=== PATIENT | female | born 1965 | race Two or more races ===

== ENCOUNTER 2016-06-11 09:57 | Inpatient (IN) | payer MEDICAID ==
[~2016-06-11] VITALS: Ht 162.6 cm; Wt 68.0 kg
[2016-06-11 12:39] LABS: Urine Bilirubin Negative (Negative); Urine Blood Negative /uL (Negative); Urine Color Yellow (Yellow); Urine Glucose Normal (Normal); Urine Ketone Negative (Negative); Urine Mucus FEW (None Seen); Urine Nitrite Negative (Negative); Urine RBC 3 /hpf (0 - 4); Urine Squamous Epithelial Cell MOD /hpf (<5); Urine Urobilinogen Normal (Negative); Urine pH 6.5 (5.0-8.0)
[2016-06-11 13:23] LABS: Basophils # (auto) 0 uL; Basophils % (auto) 0.8 % (0.0-2.0); DEFINITIVE VIEW TRANSMISSION; Eosinophils # (auto) 0.1 uL; Eosinophils % (auto) 1.5 % (0.0-7.0); Hematocrit 25.7 % (36.0-46.0); Hemoglobin 7.4 g/dL (12.2-16.2); Lymphocytes # (auto) 1.5 uL; Lymphocytes % (auto) 27.5 % (10.0-50.0); Mean Corpuscular Hemoglobin 18.8 pg (28.0-32.0); Mean Corpuscular Hgb Conc. 28.7 g/dL (32.0-36.0); Mean Corpuscular Volume 65.4 fL (80.0-100.0); Mean Platelet Volume 8.8 fL (7.4-10.4); Monocytes # (auto) 0.6 uL; Monocytes % (auto) 9.8 % (0.0-12.0); Neutrophils # (auto) 3.4 uL; Neutrophils % (auto) 60.4 % (37.0-80.0); Platelet Count (auto) 359 10^3/uL (140-450); White Blood Cell 5.6 10^3/uL (4.4-10.8)
[2016-06-11 13:39] LABS: Potassium 3.5 mmol/L (3.5-5.1)
[2016-06-11 13:47] LABS: Albumin 3.4 g/dL (3.4-5.0); BUN/Creatinine Ratio 18.8; Calcium 8.3 mg/dL (8.5-10.1)
[2016-06-11 14:08] LABS: Red Cell Distribution Width 20.3 % (11.6-16.0)
[2016-06-11] MEDS ORDERED: SODIUM CHLORIDE 0.9% 500 ML IVB ONE (14:26)
[2016-06-11 14:46] LABS: Bilirubin, Total 0.3 mg/dL (0.2-1.0); Total Protein 7.4 g/dL (6.4-8.2)
[2016-06-11 15:19] LABS: INR 1.03 (0.9-1.15); Partial Thromboplastin Time 22.4 sec (22.64-33.71); Prothrombin Time 10.6 sec (9.37-12.3)
[2016-06-11 15:30] LABS: Anisocytosis Moderate; Hypochromia Marked; Microcytosis Marked; Platelet Estimate Adequate
[2016-06-11] MEDS ORDERED: HYDROcodone-ACET 5/325MG TAB PO PRN (22:00)
[2016-06-11] MEDS ORDERED: LACTULOSE 20Gm/30ML SOLN PO PRN (22:00)
[2016-06-11 23:00] VITALS: BP 115/58
[2016-06-11] MEDS: SODIUM CHLORIDE 0.9% 1,000 ML IV SCH (23:00)
[2016-06-11 23:15] VITALS: BP 111/59
[2016-06-12] VITALS (10 sets, daily range): BP systolic 89–109; BP diastolic 47–59
[2016-06-12] MEDS ORDERED: IBUP200C3 PO (06:15)
[2016-06-12] MEDS ORDERED: OMEP20CA5 OR (06:15)
[2016-06-12 06:26] LABS: Basophils # (auto) 0.1 uL; Basophils % (auto) 1.4 % (0.0-2.0); DEFINITIVE VIEW TRANSMISSION; Eosinophils # (auto) 0.1 uL; Eosinophils % (auto) 2.4 % (0.0-7.0); Hematocrit 30.3 % (36.0-46.0); Lymphocytes # (auto) 1.7 uL; Lymphocytes % (auto) 37.5 % (10.0-50.0); Mean Corpuscular Hemoglobin 21.2 pg (28.0-32.0); Mean Corpuscular Hgb Conc. 29.8 g/dL (32.0-36.0); Mean Corpuscular Volume 71.1 fL (80.0-100.0); Mean Platelet Volume 8.7 fL (7.4-10.4); Monocytes # (auto) 0.6 uL; Neutrophils % (auto) 44.7 % (37.0-80.0); Platelet Count (auto) 296 10^3/uL (140-450); SUSPECT VIEW TRANSMISSION; White Blood Cell 4.4 10^3/uL (4.4-10.8)
[2016-06-12 06:58] LABS: BUN/Creatinine Ratio 14.8; Calcium 7.9 mg/dL (8.5-10.1); Potassium 3.7 mmol/L (3.5-5.1)
[2016-06-12 07:01] LABS: Bilirubin, Total 0.7 mg/dL (0.2-1.0); Total Protein 6.5 g/dL (6.4-8.2)
[2016-06-12 07:20] LABS: Red Cell Distribution Width 26.7 % (11.6-16.0)
[2016-06-12] MEDS ORDERED: LUTE20TA PO (07:45)
[2016-06-12 10:37] LABS: Anisocytosis Slight; Hypochromia Slight; Platelet Estimate Adequate
[2016-06-12] MEDS ORDERED: PANTOPRAZOLE 40 MG TAB PO ONE (10:45)
[2016-06-12] MEDS ORDERED: GADOPENTETATE DIMEGLUMINE (10MMOL/20 ML) VIAL IV ONE (12:59)
[2016-06-12] MEDS: SODIUM CHLORIDE 0.9% 1,000 ML IV SCH ×2 (14:01→22:49)
[2016-06-13] VITALS (7 sets, daily range): BP systolic 97–105; BP diastolic 39–69
[2016-06-13 07:13] LABS: Basophils # (auto) 0.1 uL; Basophils % (auto) 1.5 % (0.0-2.0); DEFINITIVE VIEW TRANSMISSION; Eosinophils # (auto) 0.1 uL; Eosinophils % (auto) 2.8 % (0.0-7.0); Hematocrit 30.1 % (36.0-46.0); Hemoglobin 9.1 g/dL (12.2-16.2); Lymphocytes # (auto) 1.3 uL; Lymphocytes % (auto) 26.9 % (10.0-50.0); Mean Corpuscular Hemoglobin 21.3 pg (28.0-32.0); Mean Corpuscular Hgb Conc. 30.4 g/dL (32.0-36.0); Mean Corpuscular Volume 70.3 fL (80.0-100.0); Mean Platelet Volume 8.3 fL (7.4-10.4); Monocytes # (auto) 0.6 uL; Monocytes % (auto) 12.2 % (0.0-12.0); Neutrophils # (auto) 2.7 uL; Neutrophils % (auto) 56.6 % (37.0-80.0); Platelet Count (auto) 320 10^3/uL (140-450); SUSPECT VIEW TRANSMISSION; White Blood Cell 4.8 10^3/uL (4.4-10.8)
[2016-06-13 07:18] LABS: Red Cell Distribution Width 26.7 % (11.6-16.0)
[2016-06-13 07:19] LABS: Anisocytosis Moderate; Hypochromia Moderate; Microcytosis Moderate; Platelet Estimate Adequate
[2016-06-13 07:27] LABS: Calcium 7.9 mg/dL (8.5-10.1); Potassium 3.6 mmol/L (3.5-5.1)
[2016-06-13 07:36] LABS: BUN/Creatinine Ratio 13.8; Bilirubin, Total 0.5 mg/dL (0.2-1.0); Total Protein 6.5 g/dL (6.4-8.2)
[2016-06-13] MEDS: PANTOPRAZOLE 40 MG TAB PO SCH (10:41)
[2016-06-13] MEDS: SODIUM CHLORIDE 0.9% 1,000 ML IV SCH ×2 (11:19→23:49)
[2016-06-13] MEDS ORDERED: IOHEXOL 300 MG/ML 100ML BOTTLE IJ ONE (11:46)
[2016-06-14 04:47] VITALS: BP 105/46
[2016-06-14 08:00] VITALS: BP 98/69
[2016-06-14 08:50] VITALS: BP 98/69
[2016-06-14] MEDS: PANTOPRAZOLE 40 MG TAB PO SCH (09:35)
[2016-06-14 10:11] LABS: Basophils # (auto) 0 uL; Basophils % (auto) 0.7 % (0.0-2.0); DEFINITIVE VIEW TRANSMISSION; Eosinophils # (auto) 0.1 uL; Eosinophils % (auto) 2.9 % (0.0-7.0); Hematocrit 32.5 % (36.0-46.0); Hemoglobin 9.5 g/dL (12.2-16.2); Lymphocytes # (auto) 1.3 uL; Lymphocytes % (auto) 27.4 % (10.0-50.0); Mean Corpuscular Hemoglobin 20.9 pg (28.0-32.0); Mean Corpuscular Hgb Conc. 29.3 g/dL (32.0-36.0); Mean Corpuscular Volume 71.4 fL (80.0-100.0); Mean Platelet Volume 8.7 fL (7.4-10.4); Monocytes # (auto) 0.4 uL; Monocytes % (auto) 8.2 % (0.0-12.0); Neutrophils # (auto) 2.9 uL; Neutrophils % (auto) 60.8 % (37.0-80.0); Platelet Count (auto) 328 10^3/uL (140-450); SUSPECT VIEW TRANSMISSION; White Blood Cell 4.7 10^3/uL (4.4-10.8)
[2016-06-14 10:17] LABS: Albumin 3.2 g/dL (3.4-5.0); BUN/Creatinine Ratio 13.1; Calcium 8.2 mg/dL (8.5-10.1); Potassium 3.6 mmol/L (3.5-5.1)
[2016-06-14 10:20] LABS: Bilirubin, Total 0.4 mg/dL (0.2-1.0); Total Protein 6.9 g/dL (6.4-8.2)
[2016-06-14 10:31] LABS: Red Cell Distribution Width 26.4 % (11.6-16.0)
[2016-06-14 11:24] VITALS: BP 98/69
[2016-06-14 11:52] LABS: Anisocytosis Moderate; Hypochromia Moderate; Platelet Estimate Adequate
[2016-06-14 12:15] LABS: Microcytosis Moderate
== END 2016-06-14 13:05 | disposition home or self-care (01) | DRG 663 ==
LOC: ER 09:59 → TELE-CENTR 10:00
PROVIDERS: ADMIT Family Medicine; ATTEND Internal Medicine
PROC: 30233N1 Transfusion of Nonautologous Red Blood Cells into Peripheral Vein, Percutaneous Approach (ICD-10-PCS; principal; 2016-06-11)
PROC: 30233N1 Transfusion of Nonautologous Red Blood Cells into Peripheral Vein, Percutaneous Approach (ICD-10-PCS; 2016-06-12)
DX: D50.0 Iron deficiency anemia secondary to blood loss (chronic) (principal); R16.0 Hepatomegaly, not elsewhere classified; D25.1 Intramural leiomyoma of uterus; H40.9 Unspecified glaucoma; N92.0 Excessive and frequent menstruation with regular cycle; K80.20 Calculus of gallbladder without cholecystitis without obstruction; K29.70 Gastritis, unspecified, without bleeding; K76.9 Liver disease, unspecified; Z82.49 Family history of ischemic heart disease and other diseases of the circulatory system; Z83.3 Family history of diabetes mellitus
CPT/HCPCS: 36415; 36430; 71010; 73723; 74170; 74176; 76705; 80053; 81001; 83735; 84702; 85025; 85610; 85730; 86850; 86900; 86901; 86920; 94761; 96360; 96361

== ENCOUNTER 2024-06-14 18:49 | Emergency (ER) | payer MEDICAID ==
[~2024-06-14] VITALS: Ht 157.5 cm; Wt 67.2 kg
[~2024-06-14 18:49] MED LIST: IBUP200C3 PO; LUTE20CA PO; OMEP20CA74 OR
--- NOTE | 2024-06-14 19:23 | ED.PDOC ---
History of Present Illness HPI Comments 58 y/o F presents with c/o right-facial droop and right-sided facial numbness for 8x days. She comments on symptoms onset being sudden and unprovoked and having no prior history of in the past. She denies having any weakness, numbness, tingling, fever, chills, or other associated symptoms or modifiers at this time. 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 ) Family History Family History: No family hx of DM, No family hx of HTN Social History Smoker: Non-Smoker Alcohol: Rarely Drugs: Denies Drug Use Lives In: Home EENTM: reports: others (right-side facial droop) Neurological: reports: numbness (right-side numbness to mouth) Physical Exam General Appearance: No Apparent Distress, Normal HEENT: Eye Lid (R) (lag), Pharynx Normal, TMs Normal, Other (right-sided facial droop, otherwise normal ENT exam ) Neck: Full Range of Motion, Non-Tender, Normal, Normal Inspection Respiratory: Chest Non-Tender, Lungs Clear, No Accessory Muscle Use, No Respiratory Distress, Normal Breath Sounds Cardiovascular: No Edema, No JVD, No Murmur, No Gallop, Normal Peripheral Pulses, Regular Rate/Rhythm Breast Exam: Deferred Gastrointestinal: No Organomegaly, Non Tender, No Pulsatile Mass, Normal Bowel Sounds, Soft Genitalia: Deferred Pelvic: Deferred Rectal: Deferred Extremities: No calf tenderness, Normal capillary refill, Normal inspection, Normal range of motion, Non-tender, No pedal edema Musculoskeletal : Apperance: Normal Neurologic: Alert, open hearth melter II-XII nml as Tested, No Motor Deficits, Normal Affect, Normal Mood, No Sensory Deficits Cerebellar Function: Normal Reflexes: Normal Skin: Dry, Normal Color, Warm Lymphatic: No Adenopathy Was a procedure done? Was a procedure done?: No Differential Dx Considerations may include: delgado's palsy, CVA, TIA, viral syndrome X-Ray, Labs, Meds, VS Vital Signs Date Time Temp Pulse Resp B/P (MAP) Pulse Ox O2 Delivery O2 Flow Rate FiO2 06/14/24 19:07 69 06/14/24 19:03 98.0 79 17 122/58 (79) 98 Lab Test 06/14/24 18:57 Range/Units POC Glucose 124 H 70-106 mg/dl [place] [id number] Ph: [phone] DIAGNOSTIC IMAGING Diagnostic Imaging Report : [id number] Signed PATIENT: PRADEEP WALKER ACCT: [id number] UNIT: [id number] : 1965 LOC: ER ROOM / BED: / AGE / SEX: 58 / F ADM STATUS: REG ER SERVICE 09 ORDERING PHYSICIAN: GISSELLE LONG MD PROCEDURE(s): CXRP - CHEST PORTABLE REASON: cellulittis ORDER NUMBER(s): [id number], ACCESSION NUMBER(s): [id number] CHEST RADIOGRAPH Indication: cellulittis Technique: Single frontal view of the chest was obtained Comparison: None FINDINGS: Lines and Tubes: None Lungs: No focal consolidation. Pleura: No effusion. No pneumothorax. Cardiomediastinal contours: Unremarkable Bones: No acute osseous abnormality. IMPRESSION: No acute cardiopulmonary disease. ATED BY: KAITLYN PLATA DO DICTATED DATE/TIME: 06/14/241925 SIGNED BY: KAITLYN PLATA DO SIGNED DATE/TIME: 06/14/241925 CC: DIAGNOSTIC IMAGING Diagnostic Imaging Report : [id number] Signed PATIENT: PRADEEP WALKER ACCT: [id number] UNIT: [id number] : 1965 LOC: ER ROOM / BED: / AGE / SEX: 58 / F ADM STATUS: REG ER SERVICE 03 ORDERING PHYSICIAN: GISSELLE LONG MD PROCEDURE(s): HWOCT - HEAD WITHOUT CONTRAST REASON: delgado s palsy ORDER NUMBER(s): [id number], ACCESSION NUMBER(s): [id number] EXAM: CT HEAD WITHOUT CONTRAST HISTORY: delgado s palsy COMPARISON: None TECHNIQUE: Axial images were obtained and reformatted in coronal and sagittal planes. All CT scans at this medical facility are performed using dose modulation techniques as appropriate to a performed exam including the following: Automated exposure control was utilized; adjustment of the MA and/or KV according to patient size; and use of iterative reconstruction technique. CT Dose: CTDI volume is 52.9 mGy. Dose-length product is 936.79 mGy*cm FINDINGS: Supratentorial Region: No evidence for large acute territorial ischemia. No intracranial hemorrhage is noted. Posterior Fossa: No acute abnormality. Brainstem: Unremarkable. Sellar/Suprasellar Region: Unremarkable. Ventricles, Cisterns, Sulci: Age-appropriate. Orbits: Right phthesis bulbi noted. Paranasal Sinuses: Unremarkable. Mastoid Air Cells: Unremarkable. Vasculature: Unremarkable. Bones/Soft Tissues: No acute abnormality. Other: None. IMPRESSION: 1. No acute intracranial process. ATED BY: MIKAELA ATKINS MD DICTATED DATE/TIME: 06/14/241936 SIGNED BY: MIKAELA ATKINS MD SIGNED DATE/TIME: 06/14/241936 CC: The patient was started on prep per day. She is to follow up with the primary care physician for Neurology referral to fully palsy. Time of 1ST Reevaluation: 19:25 Reevaluation 1ST: Unchanged Patient Education/Counseling: Diagnosis, Treatment Family Education/Counseling: No Family Present Departure 1 Departure Time of Disposition: 20:16 Impression: Primary Impression: Delgado's palsy Disposition: 01 HOME / SELF CARE / HOMELESS Condition: Stable Additional Instructions: Reassessed patient, vital signs stable. Denies any new symptoms. Patient is able to tolerate PO and ambulate/be mobile at their baseline without concern. Risks and benefits of all medications given or prescribed, if any, discussed. All lab work, imaging and diagnostic studies were reviewed by me. The patient was counseled extensively on my clinical impression, diagnosis, expected course of the disease, and plan, including their follow-up care. Will discharge patient. Patient instructed to follow up with Primary Care Physician within 24-48 hours for Neurology referral. Strict return precautions given for further exacerbation of symptoms or for new symptoms. The patient was given the opportunity to ask questions and all questions were answered by myself and the nursing/tech staff. Patient is in agreement with the care plan. The patient verbally expressed understanding of the discharge instructions, including the reasons to return to the Emergency Department. e-Prescriptions Prednisone (Prednisone) 20 Mg Tab 20 MG PO DAILY, #30 MG Prov: GISSELLE LONG MD 06/14/24 Discharged With: Self Critical Care Note Critical Care Time?: No Stability Stability form required: No Heart Score Heart Score: Heart Score Response (Comments) Value History N/A 0 EKG N/A 0 Age N/A 0 Risk Factors N/A 0 Troponin N/A 0 Total 0 I personally scribed for GISSELLE LONG MD ([email or web address]) on 06/14/24 at 19:23. Electronically submitted by Michael Saldivar ([email or web address]). GISSELLE LONG MD Jun 14, 2024 19:23
--- NOTE | 2024-06-14 19:28 | DVH ---
CHEST RADIOGRAPH Indication: cellulittis Technique: Single frontal view of the chest was obtained Comparison: None FINDINGS: Lines and Tubes: None Lungs: No focal consolidation. Pleura: No effusion. No pneumothorax. Cardiomediastinal contours: Unremarkable Bones: No acute osseous abnormality. IMPRESSION: No acute cardiopulmonary disease.
[2024-06-14] MEDS ORDERED: predniSONE 20 MG TAB PO ONE (19:30)
--- NOTE | 2024-06-14 19:39 | DVH ---
EXAM: CT HEAD WITHOUT CONTRAST HISTORY: pardo s palsy COMPARISON: None TECHNIQUE: Axial images were obtained and reformatted in coronal and sagittal planes. All CT scans at this medical facility are performed using dose modulation techniques as appropriate t o a performed exam including the following: Automated exposure control was utilized; adjustment of th e MA and/or KV according to patient size; and use of iterative reconstruction technique. CT Dose: CTDI volume is 52.9 mGy. Dose-length product is 936.79 mGy*cm FINDINGS: Supratentorial Region: No evidence for large acute territorial ischemia. No intracranial hemorrhage is noted. Posterior Fossa: No acute abnormality. Brainstem: Unremarkable. Sellar/Suprasellar Region: Unremarkable. Ventricles, Cisterns, Sulci: Age-appropriate. Orbits: Right phthesis bulbi noted. Paranasal Sinuses: Unremarkable. Mastoid Air Cells: Unremarkable. Vasculature: Unremarkable. Bones/Soft Tissues: No acute abnormality. Other: None. IMPRESSION: 1. No acute intracranial process.
[2024-06-14] MEDS ORDERED: PRED20TA2 PO (20:18)
[2024-06-14 22:14] VITALS: BP 109/49; TEMP 97.9
[2024-06-14 22:18] VITALS: PULSE 67; RESP 16; O2SAT 97
--- NOTE | 2024-06-16 07:14 | ECG ---
[facility] Test Date: 2024-06-14 Test Time: 19:07:28 Pat Name: PRADEEP WALKER Department: ER Room: Gender: F On Air Director: ZO : 1965 Requested By: GISSELLE LONG Order Number: [id number] Reading MD: Joey Prater Measurements Intervals [place] Rate: 69 P: 38 WV: 167 QRS: 16 QRSD: 81 T: 44 QT: 405 QTc: 434 Interpretive Statements Sinus rhythm Electronically Signed On 06-16-2024 9:47:33 PST by Joey Prater Please click the below link to view image of tracing.
== END 2024-06-14 22:24 | disposition home or self-care (01) ==
LOC: ER 18:52
DX: G51.0 Bell's palsy (principal); Z90.49 Acquired absence of other specified parts of digestive tract; Z90.710 Acquired absence of both cervix and uterus; Z79.899 Other long term (current) drug therapy
CPT/HCPCS: 70450; 71045; 82962; 87040; 93005

== ENCOUNTER 2024-09-19 10:40 | Inpatient (IN) | payer MEDICAID ==
[~2024-09-19] VITALS: Ht 162.6 cm; Wt 73.9 kg
[~2024-09-19 10:40] MED LIST changes: +PRED20TA2 PO
--- NOTE | 2024-09-19 11:26 | ED.PDOC ---
General HPI Comments 58y/o F, with no prior medical history presents to the ED for CC of pelvic pain. Patient states, she has been experiencing pelvic pain that radiates to her flanks and lower back [id number]. Patient reports, additional associated symptoms of nausea, diarrhea, and chills onset, 2 weeks ago which have since resolved. Patient denies hematuria, fever, fatigue, or vomiting. No other symptoms or modifying factors present this time. Time Seen by MD: 11:10 Primary Care Provider: unknown Reviewed notes: Nurses Notes, Medications, Allergies Allergies: Coded Allergies: NO KNOWN ALLERGIES (Unverified , 06/11/16) Home Meds Active Scripts Prednisone (Prednisone) 20 Mg Tab, 20 MG PO DAILY, #30 MG Prov:GISSELLE LONG MD 06/14/24 Reported Medications Vegetable Enzyme (Lutein) 20 Mg Tab, 20 MG PO, TAB 06/12/16 Ibuprofen (Ibuprofen) 200 Mg Cap, 200 MG PO, MG 06/12/16 Omeprazole (PRILOSEC) 20 Mg Cap, 20 MG OR, CAP 06/12/16 Information Source: Patient Mode of Arrival: Ambulatory Severity: Moderate Inability to void: None Timing: Weeks Duration: Since onset Prehospital treatment: None Onset: Spontaneous Symptoms: None History of: None Location: Suprapubic, (R) Flank, (L)Flank Modifying factors: None associated signs and symptoms: Nausea, Flank Pain, Back Pain Past Medical History PAST MEDICAL HISTORY: Denies Surgical History: Cholecystectomy, , 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 Family History Family History: No family hx of DM, No family hx of HTN Social History Smoker: Non-Smoker Alcohol: Rarely Drugs: Denies Drug Use Lives In: Home Constitutional: reports: chills; denies: diaphoresis, fatigue, fever, malaise, sweats, weakness, others EENTM: denies: blurred vision, double vision, ear bleeding, ear discharge, ear drainage, ear pain, ear ringing, eye pain, eye redness, hearing loss, mouth pain, mouth swelling, nasal discharge, nose bleeding, nose congestion, nose pain, photophobia, tearing, throat pain, throat swelling, voice changes, others Respiratory: denies: cough, hemoptysis, orthopnea, SOB at rest, shortness of breath, SOB with excertion, stridor, wheezing, others Cardiovascular: denies: chest pain, dizzy spells, diaphoresis, Dyspnea on exertion, edema, irregular heart beat, left arm pain, lightheadedness, palpitations, PND, syncope, others Gastrointestinal: reports: diarrhea, nausea; denies: abdomen distended, abdominal pain, blood streaked bowels, constipated, dysphagia, difficulty swallowing, hematemesis, melena, poor appetite, poor fluid intake, rectal bleeding, rectal pain, vomiting, others Genitourinary: reports: flank pain; denies: abnormal vagina bleeding, burning, dyspareunia, dysuria, frequency, hematuria, incontinence, pain, , vagina discharge, urgency, others Neurological: denies: dizziness, fainting, headache, left sided numbness, left sided weakness, numbness, paresthesia, pre-existing deficit, right sided numbness, right sided weakness, seizure, speech problems, tingling, tremors, weakness, others Musculoskeletal: reports: back pain; denies: gout, joint pain, joint swelling, muscle pain, muscle stiffness, neck pain, others Integumetry: denies: bruises, change in color, change in hair/nails, dryness, laceration, lesions, lumps, rash, wounds, others Hematologic/Lymphatic: denies: anemia, blood clots, easy bleeding, easy bruising, swollen glands, others Endocrine: denies: excessive hunger, excessive sweating, excessive thirst, excessive urination, flushing, intolerance to cold, intolerance to heat, unexplained weight gain, unexplained weight loss, others Psychiatric: denies: anxiety, bipolar disorder, depression, hopeless, panic disorder, schizophrenia, sleepless, suicidal, others All Other Systems: Reviewed and Negative Physical Exam General Appearance: Moderate Distress HEENT: Normal ENT Inspection, Pharynx Normal, TMs Normal Neck: Full Range of Motion, Non-Tender, Normal, Normal Inspection Respiratory: Chest Non-Tender, Lungs Clear, No Accessory Muscle Use, No Respiratory Distress, Normal Breath Sounds Cardiovascular: No Edema, No JVD, No Murmur, No Gallop, Normal Peripheral Pulses, Regular Rate/Rhythm Breast Exam: Deferred Gastrointestinal: LLQ, No Organomegaly, No Pulsatile Mass, Normal Bowel Sounds, RLQ, Soft, Tenderness Genitalia: Deferred Pelvic: Deferred Rectal: Deferred Extremities: No calf tenderness, Normal capillary refill, Normal inspection, Normal range of motion, Non-tender, No pedal edema Musculoskeletal : Apperance: Normal Neurologic: Alert, rodeo rider II-XII nml as Tested, No Motor Deficits, Normal Affect, Normal Mood, No Sensory Deficits Cerebellar Function: Normal Reflexes: Normal Skin: Dry, Normal Color, Warm Lymphatic: No Adenopathy Was a procedure done? Was a procedure done?: No Differential Diagnosis Kidney stone (Female): Pyelonephritis, Urinary obstruction, Urolithiasis Kidney stone (Male): Pancreatitis Urinary Problem (Female): UTI X-Ray, Labs, Meds, VS Vital Signs Date Time Temp Pulse Resp B/P (MAP) Pulse Ox O2 Delivery O2 Flow Rate FiO2 09/19/24 10:45 99.0 85 18 116/68 (84) 94 99.0 Lab Test 09/19/24 11:34 09/19/24 10:57 Range/Units White Blood Count 9.3 4.4-10.8 10^3/uL Red Blood Count 4.44 4.0-5.20 10^6/uL Hemoglobin 13.4 12.2-16.2 g/dL Hematocrit 39.4 36.0-46.0 % Mean Corpuscular Volume 88.7 80.0-100.0 fL Mean Corpuscular Hemoglobin 30.1 28.0-32.0 pg Mean Corpuscular Hemoglobin Concent 33.9 32.0-36.0 g/dL Red Cell Distribution Width 12.2 11.8-14.3 % Platelet Count 301 140-450 10^3/uL Mean Platelet Volume 8.1 6.9-10.8 fL Neutrophils (%) (Auto) 80.6 H 37.0-80.0 % Lymphocytes (%) (Auto) 12.8 10.0-50.0 % Monocytes (%) (Auto) 5.9 0.0-12.0 % Eosinophils (%) (Auto) 0.4 0.0-7.0 % Basophils (%) (Auto) 0.3 0.0-2.0 % Neutrophils # (Auto) 7.5 1.6-8.6 10 ^3/uL Lymphocytes # (Auto) 1.2 0.4-5.4 10 ^3/uL Monocytes # (Auto) 0.6 0-1.3 10 ^3/uL Eosinophils # (Auto) 0 0-0.8 10 ^3/uL Basophils # (Auto) 0 0-0.2 10 ^3/uL Nucleated Red Blood Cells 0.1 % Sodium Level 138 136-145 mmol/L Potassium Level 3.7 3.5-5.1 mmol/L Chloride Level 101 98-107 mmol/L Carbon Dioxide Level 28 20-31 mmol/L Anion Gap 9 5-15 Blood Urea Nitrogen 9 9-23 mg/dL Creatinine 0.68 0.550-1.02 mg/dL Glomerular Filtration Rate Calc 102 >90 mL/min BUN/Creatinine Ratio 13.2 10.0-20.0 Serum Glucose 105 74-106 mg/dL Calcium Level 10.2 8.7-10.4 mg/dL Urine Color Yellow Yellow Urine Clarity Clear Clear Urine pH 6.5 5.0-9.0 Urine Specific [place] 1.021 1.001-1.035 Urine Protein Trace H Negative Urine Ketones 1+ H Negative Urine Blood Negative Negative /uL Urine Nitrite Negative Negative Urine Bilirubin Negative Negative Urine Urobilinogen Normal Negative mg/dL Urine Leukocyte Esterase 1+ Negative /uL Urine RBC 1 0 - 4 /hpf Urine Microscopic WBC 4 0-5 /HPF Urine Squamous Epithelial Cells Few <5 /hpf Urine Bacteria Few H None Seen /hpf Urine Mucus Few None Seen Urine Glucose Normal Normal mg/dL CT ABD PEL: IMPRESSION: 1. Acute sigmoid diverticulitis. Wall thickening and stranding. No loculated abscess. Clinical correlation and continued follow-up is recommended. Consider follow-up exam with intravenous contrast. IV Hep-Lock was established. There is no sign of any abscess on the CAT scan so the patient is being started on Flagyl 500 mg IV piggyback The urine test has a slight UTI The CBC and chemistry panel are within normal limits The patient was given morphine 4 mg IV push for the pain The patient was given Zofran for the nausea The patient being admitted at this time. Images Reviewed?: Images reviewed and evaluated by me Time of 1ST Reevaluation: 11:40 Reevaluation 1ST: Unchanged Time of 2ND Reevaluation: 12:44 Reevaluation 2ND: Unchanged Patient Education/Counseling: Diagnosis, Treatment, Prognosis Family Education/Counseling: No Family Present Departure 1 Departure Time of Disposition: 12:44 Impression: Primary Impression: Intractable abdominal pain Additional Impression: Acute diverticulitis Disposition: ADMITTED INPATIENT Admit to: Med Surg Condition: Fair Critical Care Note Critical Care Time?: No Stability Stability form required: Yes Unstable for transfer: ED Physician Assesment (Clinical assesment) Heart Score Heart Score: Heart Score Response (Comments) Value History N/A 0 EKG N/A 0 Age N/A 0 Risk Factors N/A 0 Troponin N/A 0 Total 0 I personally scribed for MARGARITA ROGERS MD ([email or web address]) on 09/19/24 at 11:26. Electronically submitted by Nany Manzo ([employer]). I personally scribed for MARGARITA ROGERS MD ([email or web address]) on 09/19/24 at 11:34. Electronically submitted by Nany Manzo ([employer]). I personally scribed for MARGARITA ROGERS MD ([email or web address]) on 09/19/24 at 12:28. Electronically submitted by Nany Manzo ([employer]). MARGARITA ROGERS MD September 19, 2024 11:26
[2024-09-19 11:39] LABS: Urine Bacteria FEW /hpf (None Seen); Urine Blood Negative /uL (Negative); Urine Clarity Clear (Clear); Urine Color Yellow (Yellow); Urine Mucus FEW (None Seen); Urine Protein, UAD TRACE (Negative); Urine Specific Gravity 1.021 (1.001-1.035); Urine Squamous Epithelial Cell FEW /hpf (<5); Urine Urobilinogen Normal (Negative); Urine WBC 4 /HPF (0-5); Urine pH 6.5 (5.0-9.0)
[2024-09-19 11:59] LABS: Basophils # (auto) 0 10 ^3/uL (0-0.2); Basophils % (auto) 0.3 % (0.0-2.0); Eosinophils # (auto) 0 10 ^3/uL (0-0.8); Eosinophils % (auto) 0.4 % (0.0-7.0); Hematocrit 39.4 % (36.0-46.0); Hemoglobin 13.4 g/dL (12.2-16.2); Lymphocytes # (auto) 1.2 10 ^3/uL (0.4-5.4); Lymphocytes % (auto) 12.8 % (10.0-50.0); Mean Corpuscular Hemoglobin 30.1 pg (28.0-32.0); Mean Corpuscular Hgb Conc. 33.9 g/dL (32.0-36.0); Mean Corpuscular Volume 88.7 fL (80.0-100.0); Monocytes # (auto) 0.6 10 ^3/uL (0-1.3); Monocytes % (auto) 5.9 % (0.0-12.0); Neutrophils # (auto) 7.5 10 ^3/uL (1.6-8.6); Neutrophils % (auto) 80.6 % (37.0-80.0); Nucleated Red Blood Cells % 0.1 %; Platelet Count (auto) 301 10^3/uL (140-450); Red Blood Cells 4.44 10^6/uL (4.0-5.20); Red Cell Distribution Width 12.2 % (11.8-14.3); White Blood Cell 9.3 10^3/uL (4.4-10.8)
[2024-09-19 12:08] LABS: Chloride 101 mmol/L (98-107); Potassium 3.7 mmol/L (3.5-5.1); Sodium 138 mmol/L (136-145)
[2024-09-19 12:09] LABS: Anion Gap 9 (5-15); Calcium 10.2 mg/dL (8.7-10.4); Carbon Dioxide 28 mmol/L (20-31)
[2024-09-19 12:14] LABS: BUN/Creatinine Ratio 13.2 (10.0-20.0); Blood Urea Nitrogen 9 mg/dL (9-23); Glucose 105 mg/dL (74-106)
--- NOTE | 2024-09-19 12:18 | DVH ---
Exam: CT CT AB PEL WO CON-NO ORAL OR IV History: pain Comparison Study: None Technique: Multidetector spiral CT of the abdomen and pelvis was performed from lung bases to pubic symphysis. Imaging was performed without IV contrast. Axial, coronal and sagittal multiplanar reform ats were obtained from the axial data set by the technologist. Radiation dose : Abdomen/Pelvis: CTDIvol 6.42 mGy, DLP 346.23 mGy*cm. Findings: Evaluation of solid organs is limited due to lack of intravenous contrast use. Lung Bases: No acute or significant lung base finding. Normal heart size. No pleural or pericardial effusion. Liver: Subcentimeter right hepatic cyst. Gallbladder and biliary Tree: Gallbladder is surgically absent. Spleen: Unremarkable Pancreas: The pancreas is grossly normal in appearance. Adrenal Glands: Unremarkable Kidneys: Kidneys are grossly normal without calculi or hydronephrosis. Bladder: Grossly unremarkable for degree of distention. Bowel: The stomach is grossly normal in appearance. Small bowel and colon are normal in caliber and d istribution. Normal appendix is visualized in the right lower quadrant without findings of appendicit is. Sigmoid diverticulosis with wall thickening and adjacent stranding. No definite loculated abscess . Ascites: Absent Lymphadenopathy: No mesenteric, retroperitoneal or periportal lymphadenopathy. Abdominal wall and Mesentery: Unremarkable. Vasculature: The visualized abdominal aorta is normal in size and caliber. Evaluation of abdominal a nd pelvic vessels is limited due to lack of intravenous contrast. Pelvic Organs: The uterus is surgically absent. Musculoskeletal: No aggressive focal bony lesions, acute fractures or dislocation. IMPRESSION: 1. Acute sigmoid diverticulitis. Wall thickening and stranding. No loculated abscess. Clinical corre lation and continued follow-up is recommended. Consider follow-up exam with intravenous contrast. Radiation optimization: All CT scans at this facility use at least one of these dose optimization lakshmi hniques: Automated exposure control mA and/or kV adjustment per patient size (includes targeted exams where dose is matched to clinical indication) or iterative reconstruction. HS:Y
[2024-09-19 13:45] VITALS: PULSE 88; RESP 18; O2SAT 96
[2024-09-19] MEDS: MORPHINE SULFATE 4 MG/ML SYR/VIAL IV ONE (13:50)
[2024-09-19] MEDS: metroNIDAZOLE 500MG/100ML 100 ML IV ONE (13:50)
[2024-09-19] MEDS: ONDANSETRON HCL 4 MG/2 ML VIAL IV ONE (13:50)
[2024-09-19] MEDS ORDERED: NITROGLYCERIN 0.4 MG SL TAB SL PRN (19:15)
[2024-09-19] MEDS ORDERED: MORPHINE SULFATE INJ 2 MG/ml SYRG IV PRN ×2 (19:15)
[2024-09-19] MEDS ORDERED: ONDANSETRON HCL 4 MG/2 ML VIAL IV PRN (19:15)
[2024-09-19] MEDS: cefTRIAXone 1GM/50ML D5W 50 ML IV ONE (19:42)
--- NOTE | 2024-09-19 20:44 | DVHHP2 ---
History of Present Illness Reason for Visit: Abdominal pain History of Present Illness 58-year-old female presents for evaluation of abdominal pain. Patient reports abdominal pain has been ongoing intermittently for the past 1-1/2 weeks. She also reports constipation for the past four days. No fever or chills. Reports intermittent nausea. No other acute complaints reported. Past Medical History Denies Past Surgical History , hysterectomy, cholecystectomy Family History Noncontributory Smoke: No ALCOHOL: none Drugs: None Lives: with Family Review of Systems Review of Systems Review of systems are currently negative otherwise addressed in HPI. Allergies: Coded Allergies: NO KNOWN ALLERGIES (Unverified , 06/11/16) Medications Current Medications Medications Dose Ordered Sig/Nico Route Start Time Stop Time Status Last Admin Dose Admin Ceftriaxone Sodium 50 ml @ 100 mls/hr DAILY@09 IV 09/20/24 09:00 Metronidazole 100 ml @ 100 mls/hr Q8HR IV 09/19/24 22:00 Acetaminophen/ Hydrocodone Bitart 1 tab Q4HP PRN PO 09/19/24 19:15 Ondansetron HCl 4 mg Q4HP PRN IV 09/19/24 19:15 Acetaminophen 650 mg Q6HP PRN PO 09/19/24 19:15 Morphine Sulfate 2 mg Q6HPRN PRN IV 09/19/24 19:15 Nitroglycerin 0.4 mg Q5MINP PRN SL 09/19/24 19:15 Morphine Sulfate 2 mg Q30M PRN IV 09/19/24 19:15 Exam Vital Signs Vital Signs Date Time Temp Pulse Resp B/P (MAP) Pulse Ox O2 Delivery O2 Flow Rate FiO2 09/19/24 17:30 98.3 82 18 104/73 (83) 94 98.3 09/19/24 13:45 Room Air* 0 21 Exam Gen: 58-year-old female in mild distress Skin: Warm, dry, normal color and texture, no rash. HEENT: Normocephalic atraumatic, mucous membranes moist and pink. Neck: Cervical and supraclavicular nodes normal without enlargement, trachea is midline, thyroid gland is normal without masses. Pulmonary: Clear to auscultation and percussion bilaterally. Cardiac: Regular rate and rhythm. No murmur Abdomen: Soft, abdominal tenderness, nondistended, bowel sounds present all 4 quadrants, no guarding, no rigidity, no organomegaly. Extremities: No cyanosis, clubbing, no edema Neuro: Cranial nerves II through XII grossly intact, normal affect and speech, no focal motor deficits. Labs/Xrays ORDERING PHYSICIAN: MARGARITA ROGERS MD PROCEDURE(s): ABPL - CT AB PEL WO CON-NO ORAL OR IV REASON: pain ORDER NUMBER(s): [id number], ACCESSION NUMBER(s): [id number] Exam: CT CT AB PEL WO CON-NO ORAL OR IV History: pain Comparison Study: None Technique: Multidetector spiral CT of the abdomen and pelvis was performed from lung bases to pubic symphysis. Imaging was performed without IV contrast. Axial, coronal and sagittal multiplanar reformats were obtained from the axial data set by the technologist. Radiation dose : Abdomen/Pelvis: CTDIvol 6.42 mGy, DLP 346.23 mGy*cm. Findings: Evaluation of solid organs is limited due to lack of intravenous contrast use. Lung Bases: No acute or significant lung base finding. Normal heart size. No pleural or pericardial effusion. Liver: Subcentimeter right hepatic cyst. Gallbladder and biliary Tree: Gallbladder is surgically absent. Spleen: Unremarkable Pancreas: The pancreas is grossly normal in appearance. Adrenal Glands: Unremarkable Kidneys: Kidneys are grossly normal without calculi or hydronephrosis. Bladder: Grossly unremarkable for degree of distention. Bowel: The stomach is grossly normal in appearance. Small bowel and colon are normal in caliber and distribution. Normal appendix is visualized in the right lower quadrant without findings of appendicitis. Sigmoid diverticulosis with wall thickening and adjacent stranding. No definite loculated abscess. Ascites: Absent Lymphadenopathy: No mesenteric, retroperitoneal or periportal lymphadenopathy. Abdominal wall and Mesentery: Unremarkable. Vasculature: The visualized abdominal aorta is normal in size and caliber. Evaluation of abdominal and pelvic vessels is limited due to lack of intravenous contrast. Pelvic Organs: The uterus is surgically absent. Musculoskeletal: No aggressive focal bony lesions, acute fractures or dislocation. IMPRESSION: 1. Acute sigmoid diverticulitis. Wall thickening and stranding. No loculated abscess. Clinical correlation and continued follow-up is recommended. Consider follow-up exam with intravenous contrast. Radiation optimization: All CT scans at this facility use at least one of these dose optimization techniques: Automated exposure control mA and/or kV adjustment per patient size (includes targeted exams where dose is matched to clinical indication) or iterative reconstruction. HS:Y Labs Test 09/19/24 11:34 09/19/24 10:57 Range/Units White Blood Count 9.3 4.4-10.8 10^3/uL Red Blood Count 4.44 4.0-5.20 10^6/uL Hemoglobin 13.4 12.2-16.2 g/dL Hematocrit 39.4 36.0-46.0 % Mean Corpuscular Volume 88.7 80.0-100.0 fL Mean Corpuscular Hemoglobin 30.1 28.0-32.0 pg Mean Corpuscular Hemoglobin Concent 33.9 32.0-36.0 g/dL Red Cell Distribution Width 12.2 11.8-14.3 % Platelet Count 301 140-450 10^3/uL Mean Platelet Volume 8.1 6.9-10.8 fL Neutrophils (%) (Auto) 80.6 H 37.0-80.0 % Lymphocytes (%) (Auto) 12.8 10.0-50.0 % Monocytes (%) (Auto) 5.9 0.0-12.0 % Eosinophils (%) (Auto) 0.4 0.0-7.0 % Basophils (%) (Auto) 0.3 0.0-2.0 % Neutrophils # (Auto) 7.5 1.6-8.6 10 ^3/uL Lymphocytes # (Auto) 1.2 0.4-5.4 10 ^3/uL Monocytes # (Auto) 0.6 0-1.3 10 ^3/uL Eosinophils # (Auto) 0 0-0.8 10 ^3/uL Basophils # (Auto) 0 0-0.2 10 ^3/uL Nucleated Red Blood Cells 0.1 % Sodium Level 138 136-145 mmol/L Potassium Level 3.7 3.5-5.1 mmol/L Chloride Level 101 98-107 mmol/L Carbon Dioxide Level 28 20-31 mmol/L Anion Gap 9 5-15 Blood Urea Nitrogen 9 9-23 mg/dL Creatinine 0.68 0.550-1.02 mg/dL Glomerular Filtration Rate Calc 102 >90 mL/min BUN/Creatinine Ratio 13.2 10.0-20.0 Serum Glucose 105 74-106 mg/dL Calcium Level 10.2 8.7-10.4 mg/dL Urine Color Yellow Yellow Urine Clarity Clear Clear Urine pH 6.5 5.0-9.0 Urine Specific [place] 1.021 1.001-1.035 Urine Protein Trace H Negative Urine Ketones 1+ H Negative Urine Blood Negative Negative /uL Urine Nitrite Negative Negative Urine Bilirubin Negative Negative Urine Urobilinogen Normal Negative mg/dL Urine Leukocyte Esterase 1+ Negative /uL Urine RBC 1 0 - 4 /hpf Urine Microscopic WBC 4 0-5 /HPF Urine Squamous Epithelial Cells Few <5 /hpf Urine Bacteria Few H None Seen /hpf Urine Mucus Few None Seen Urine Glucose Normal Normal mg/dL Assessment/Plan Assessment/Plan Assessment Acute abdominal pain Acute diverticulitis Leukocytosis Plan Admit the patient to [facility] to the hospitalist GI consultation Clear liquid diet Rocephin/ Flagyl Pain management Continue treatment per orders. Plan discussed with: Patient My Orders Orders - DERIK BAGLEY AGACNP Procedure Category Date Status Time Ceftriaxone 1gm/50ml PHA 09/20/24 In Process D5w (Rocephin) 09:00 Metronidazole PHA 09/19/24 In Process 500mg/100ml (Flagyl 22:00 Basic Metabolic Panel LAB 09/20/24 Verified 04:00 * Gi [facility] Entry Level Accountant CONS 09/19/24 Transmitted 19:06 Admit ADMIT 09/19/24 Transmitted 19:06 Hydrocodone-Acet PHA 09/19/24 In Process 5/325mg Tab (Gardiner 19:15 Ondansetron Hcl PHA 09/19/24 In Process (Zofran) 19:15 Complete Blood Count LAB 09/20/24 Verified 04:00 Condition: Stable AMPARO 09/19/24 In Process 19:06 Acetaminophen Tablet PHA 09/19/24 In Process (Tylenol Tablet) 19:15 Clear Liq Diet DIET 09/20/24 Transmitted Breakfast Bedrest With Bathroom AMPARO 09/19/24 In Process Privileg 19:06 Morphine Sulfate PHA 09/19/24 In Process Injection 19:15 Nitroglycerin PHA 09/19/24 In Process Sublingual (Ntrostat 19:15 Morphine Sulfate PHA 09/19/24 In Process Injection 19:15 Stat Ekg For Chest AMPARO 09/19/24 In Process Pain 19:06 Notify Md Of Changes AMPARO 09/19/24 In Process From Base 19:06 Coronary Clinical Specialist For AMPARO 09/19/24 In Process 24 Hours 19:06 Emergency Dysrhythmia AMPARO 09/19/24 In Process Protocol 19:06 Rhythm Strips Once AMPARO 09/19/24 In Process Every Shift 19:06 Oxygen By Nasal RT 09/19/24 Transmitted Cannula 19:06 Date of Service: September 19, 2024 Billing Provider: DERIK BAGLEY Common Visit Codes: [id number] INP/OBS CARE (MOD) DERIK BAGLEY September 19, 2024 20:44
[2024-09-19] MEDS: metroNIDAZOLE 500MG/100ML 100 ML IV SCH (23:47)
[2024-09-20] VITALS (8 sets, daily range): BP systolic 97–113; BP diastolic 51–64; PULSE 0–83; RESP 12–18; TEMP 97.8–99.4; O2SAT 92–100
[2024-09-20] MEDS: HYDROcodone-ACET 5/325MG TAB PO PRN (00:26)
[2024-09-20 04:56] LABS: Basophils # (auto) 0 10 ^3/uL (0-0.2); Basophils % (auto) 0.5 % (0.0-2.0); Eosinophils # (auto) 0.1 10 ^3/uL (0-0.8); Eosinophils % (auto) 1.6 % (0.0-7.0); Hematocrit 34.4 % (36.0-46.0); Hemoglobin 11.7 g/dL (12.2-16.2); Lymphocytes # (auto) 1.4 10 ^3/uL (0.4-5.4); Lymphocytes % (auto) 21.7 % (10.0-50.0); Mean Corpuscular Hgb Conc. 34.1 g/dL (32.0-36.0); Mean Corpuscular Volume 87.9 fL (80.0-100.0); Monocytes # (auto) 0.6 10 ^3/uL (0-1.3); Monocytes % (auto) 8.5 % (0.0-12.0); Neutrophils # (auto) 4.4 10 ^3/uL (1.6-8.6); Neutrophils % (auto) 67.7 % (37.0-80.0); Platelet Count (auto) 266 10^3/uL (140-450); Red Blood Cells 3.91 10^6/uL (4.0-5.20); Red Cell Distribution Width 12.1 % (11.8-14.3); White Blood Cell 6.5 10^3/uL (4.4-10.8)
[2024-09-20 05:32] LABS: Anion Gap 10 (5-15); Carbon Dioxide 27 mmol/L (20-31); Chloride 102 mmol/L (98-107); Potassium 3.7 mmol/L (3.5-5.1); Sodium 139 mmol/L (136-145)
[2024-09-20 05:34] LABS: Calcium 9.2 mg/dL (8.7-10.4)
[2024-09-20 05:38] LABS: BUN/Creatinine Ratio 16.7 (10.0-20.0); Blood Urea Nitrogen 10 mg/dL (9-23); Glucose 88 mg/dL (74-106)
[2024-09-20] MEDS: cefTRIAXone 1GM/50ML D5W 50 ML IV SCH (11:22)
--- NOTE | 2024-09-20 16:00 | DVHPN2 ---
Subjective Admitted for Acute Diverticulitis Changes from previous H/P or p: No Changes Objective Vitals Vital Signs Date Time Temp Pulse Resp B/P (MAP) Pulse Ox O2 Delivery O2 Flow Rate FiO2 09/20/24 13:26 98.2 79 16 113/59 (77) 95 98.2 09/20/24 13:26 Room Air* 0 21 Intake/Output Intake and Output 09/20/24 07:00 Intake Total 100 ml Balance 100 ml Intake IV Total 100 ml General Appearance: Alert, Oriented X3, Cooperative, No acute distress Lungs: Clear to auscultation Cardiovascular: Regular rate, Normal S1, Normal S2 Abdomen: Soft, Other (Tenderness) Psych/Mental Status: Mental status NL Medications Current Medications Medications Dose Ordered Sig/Nico Route Start Time Stop Time Status Last Admin Dose Admin Ceftriaxone Sodium 50 ml @ 100 mls/hr DAILY@09 IV 09/20/24 09:00 09/20/24 11:22 100 MLS/HR Metronidazole 100 ml @ 100 mls/hr Q8HR IV 09/19/24 22:00 09/20/24 15:05 100 MLS/HR Acetaminophen/ Hydrocodone Bitart 1 tab Q4HP PRN PO 09/19/24 19:15 09/20/24 00:26 1 TAB Ondansetron HCl 4 mg Q4HP PRN IV 09/19/24 19:15 Acetaminophen 650 mg Q6HP PRN PO 09/19/24 19:15 Morphine Sulfate 2 mg Q6HPRN PRN IV 09/19/24 19:15 Nitroglycerin 0.4 mg Q5MINP PRN SL 09/19/24 19:15 Morphine Sulfate 2 mg Q30M PRN IV 09/19/24 19:15 Laboratory Results Laboratory Tests 09/20/24 04:34 Chemistry Test 09/20/24 04:34 Calcium Level 9.2 mg/dL (8.7-10.4) Urinalysis Test 09/19/24 10:57 Urine Color Yellow (Yellow) Urine Clarity Clear (Clear) Urine pH 6.5 (5.0-9.0) Urine Specific [place] 1.021 (1.001-1.035) Urine Protein Trace (Negative) H Urine Ketones 1+ (Negative) H Urine Blood Negative /uL (Negative) Urine Nitrite Negative (Negative) Urine Bilirubin Negative (Negative) Urine Urobilinogen Normal mg/dL (Negative) Urine Leukocyte Esterase 1+ /uL (Negative) Urine RBC 1 /hpf (0 - 4) Urine Microscopic WBC 4 /HPF (0-5) Urine Squamous Epithelial Cells Few /hpf (<5) Urine Bacteria Few /hpf (None Seen) H Urine Mucus Few (None Seen) Urine Glucose Normal mg/dL (Normal) Assessment/Plan Assessment/Plan Acute abdominal pain due to Acute diverticulitis - Cont Abx Plan discussed with: Other Date of Service: September 20, 2024 Billing Provider: FREDIS OCHOA MD Common Visit Codes: [id number] INP/OBS CARE(MOD) FREDIS OCHOA MD September 20, 2024 16:00
--- NOTE | 2024-09-20 20:54 | DVHINCON2 ---
Date of service: September 20, 2024 Referring Physician Nicholas Carmen Reason for Consultation Acute diverticulitis History of Present Illness 58-year-old female presents for evaluation of abdominal pain. Patient reports abdominal pain has been ongoing intermittently for the past 1-1/2 weeks. She also reports constipation for the past four days. No fever or chills. Reports intermittent nausea. Patient is also complaining of some GERD symptoms. She denied any rectal bleeding. She has not had a similar episode of diverticulitis before. Her last colonoscopy was over five years ago. Past Medical History Glaucoma Hypercholesterolemia Anxiety Past Surgical History Past Surgical History , hysterectomy, cholecystectomy Family History: Bronchitis G8 MOTHER FHx: brain tumor G8 FATHER FHx: diverticulitis G8 MOTHER FHx: pneumonia G8 MOTHER Family history: Depression (situation) G8 MOTHER Family history: Diabetes mellitus G8 MOTHER G8 FATHER Family history: Hypertension G8 MOTHER Allergies: Coded Allergies: NO KNOWN ALLERGIES (Unverified , 06/11/16) Home Meds Active Scripts Prednisone (Prednisone) 20 Mg Tab, 20 MG PO DAILY, #30 MG Prov:GISSELLE LONG MD 06/14/24 Reported Medications Vegetable Enzyme (Lutein) 20 Mg Tab, 20 MG PO, TAB 06/12/16 Omeprazole (PRILOSEC) 20 Mg Cap, 20 MG OR, CAP 06/12/16 Discontinued Reported Medications Ibuprofen (Ibuprofen) 200 Mg Cap, 200 MG PO, MG 06/12/16 Current Medications Current Medications Medications (Trade) Dose Ordered Sig/Nico Route PRN Reason Start Time Stop Time Status Last Admin Ceftriaxone Sodium 50 ml @ 100 mls/hr DAILY@09 IV 09/20/24 09:00 09/20/24 11:22 Metronidazole 100 ml @ 100 mls/hr Q8HR IV 09/19/24 22:00 09/20/24 15:05 Vital Signs Vital Signs Date Time Temp Pulse Resp B/P (MAP) Pulse Ox O2 Delivery O2 Flow Rate FiO2 09/20/24 16:48 97.8 79 17 97/51 (66) 92 97.8 09/20/24 13:26 Room Air* 0 21 Physical Exam Gen: 58-year-old female in mild distress Skin: Warm, dry, normal color and texture, no rash. HEENT: Normocephalic atraumatic, mucous membranes moist and pink. Neck: Cervical and supraclavicular nodes normal without enlargement, trachea is midline, thyroid gland is normal without masses. Pulmonary: Clear to auscultation and percussion bilaterally. Cardiac: Regular rate and rhythm. No murmur Abdomen: Soft, abdominal tenderness, nondistended, bowel sounds present all 4 quadrants, no guarding, no rigidity, no organomegaly. Extremities: No cyanosis, clubbing, no edema Neuro: Cranial nerves II through XII grossly intact, normal affect and speech, no focal motor deficits. Labs/Diagnostic Data Labs Test 09/20/24 04:34 09/19/24 10:57 Range/Units White Blood Count 6.5 # 4.4-10.8 10^3/uL Red Blood Count 3.91 L 4.0-5.20 10^6/uL Hemoglobin 11.7 L 12.2-16.2 g/dL Hematocrit 34.4 #L 36.0-46.0 % Mean Corpuscular Volume 87.9 80.0-100.0 fL Mean Corpuscular Hemoglobin 30.0 28.0-32.0 pg Mean Corpuscular Hemoglobin Concent 34.1 32.0-36.0 g/dL Red Cell Distribution Width 12.1 11.8-14.3 % Platelet Count 266 140-450 10^3/uL Mean Platelet Volume 7.8 6.9-10.8 fL Neutrophils (%) (Auto) 67.7 37.0-80.0 % Lymphocytes (%) (Auto) 21.7 10.0-50.0 % Monocytes (%) (Auto) 8.5 0.0-12.0 % Eosinophils (%) (Auto) 1.6 0.0-7.0 % Basophils (%) (Auto) 0.5 0.0-2.0 % Neutrophils # (Auto) 4.4 1.6-8.6 10 ^3/uL Lymphocytes # (Auto) 1.4 0.4-5.4 10 ^3/uL Monocytes # (Auto) 0.6 0-1.3 10 ^3/uL Eosinophils # (Auto) 0.1 0-0.8 10 ^3/uL Basophils # (Auto) 0 0-0.2 10 ^3/uL Nucleated Red Blood Cells 0.0 % Sodium Level 139 136-145 mmol/L Potassium Level 3.7 3.5-5.1 mmol/L Chloride Level 102 98-107 mmol/L Carbon Dioxide Level 27 20-31 mmol/L Anion Gap 10 5-15 Blood Urea Nitrogen 10 9-23 mg/dL Creatinine 0.60 0.550-1.02 mg/dL Glomerular Filtration Rate Calc 105 >90 mL/min BUN/Creatinine Ratio 16.7 10.0-20.0 Serum Glucose 88 74-106 mg/dL Calcium Level 9.2 8.7-10.4 mg/dL Urine Color Yellow Yellow Urine Clarity Clear Clear Urine pH 6.5 5.0-9.0 Urine Specific [place] 1.021 1.001-1.035 Urine Protein Trace H Negative Urine Ketones 1+ H Negative Urine Blood Negative Negative /uL Urine Nitrite Negative Negative Urine Bilirubin Negative Negative Urine Urobilinogen Normal Negative mg/dL Urine Leukocyte Esterase 1+ Negative /uL Urine RBC 1 0 - 4 /hpf Urine Microscopic WBC 4 0-5 /HPF Urine Squamous Epithelial Cells Few <5 /hpf Urine Bacteria Few H None Seen /hpf Urine Mucus Few None Seen Urine Glucose Normal Normal mg/dL CT SCAN ABD PELVIS IMPRESSION: 1. Acute sigmoid diverticulitis. Wall thickening and stranding. No loculated abscess. Clinical correlation and continued follow-up is recommended. Consider follow-up exam with intravenous contrast. Problems(with codes): (1) Acute diverticulitis (2) Intractable abdominal pain (3) Delgado's palsy (4) Severe anemia (5) Liver mass (6) Uterine fibroid Plan/Recommendation Plan Continue IV fluid hydration IV antibiotics Stool softeners pain control Protonix 40 mg IV for GERD Carafate 1 g p.o. twice a day Dietary modifications for GERD Outpatient follow up with me in 4-6 weeks upon discharge for further management and to discuss need for repeat colonoscopy Plan discussed with: Patient YRN RUIZ MD September 20, 2024 20:54
[2024-09-20] MEDS: SUCRALFATE 1 GM/10 ML ORAL SUSP PO SCH (21:29)
[2024-09-20] MEDS: PANTOPRAZOLE 40 MG/10 ML VIAL INJ IV SCH (21:29)
[2024-09-20] MEDS: DOCUSATE SOD 100 MG CAP PO SCH (21:56)
[2024-09-21] VITALS (9 sets, daily range): BP systolic 88–108; BP diastolic 38–60; PULSE 64–87; RESP 16; TEMP 97.8–101.3; O2SAT 95–98
[2024-09-21] MEDS: ACETAMINOPHEN 325 MG TAB PO PRN (00:12)
[2024-09-21] MEDS: SODIUM CHLORIDE 0.9% 1,000 ML IV ONE (17:28)
--- NOTE | 2024-09-21 18:00 | DVHPN2 ---
Subjective Seen and examined at bedside, advance to full liquid diet. Changes from previous H/P or p: No Changes Objective Vitals Vital Signs Date Time Temp Pulse Resp B/P (MAP) Pulse Ox O2 Delivery O2 Flow Rate FiO2 09/21/24 17:24 99.1 78 16 88/44 (59) 97 99.1 09/21/24 08:00 Room Air* 0 21 Intake/Output Intake and Output 09/21/24 06:59 Intake Total 2000 ml Balance 2000 ml Intake Oral 1850 ml IV Total 150 ml # Voids 5 General Appearance: Alert, Oriented X3, Cooperative, No acute distress Lungs: Clear to auscultation Cardiovascular: Regular rate, Normal S1, Normal S2 Abdomen: Soft, Other (Tenderness) Psych/Mental Status: Mental status NL Medications Current Medications Medications Dose Ordered Sig/Nico Route Start Time Stop Time Status Last Admin Dose Admin Ceftriaxone Sodium 50 ml @ 100 mls/hr DAILY@09 IV 09/20/24 09:00 09/21/24 10:22 100 MLS/HR Metronidazole 100 ml @ 100 mls/hr Q8HR IV 09/19/24 22:00 09/21/24 13:15 100 MLS/HR Acetaminophen/ Hydrocodone Bitart 1 tab Q4HP PRN PO 09/19/24 19:15 09/20/24 00:26 1 TAB Ondansetron HCl 4 mg Q4HP PRN IV 09/19/24 19:15 Acetaminophen 650 mg Q6HP PRN PO 09/19/24 19:15 09/21/24 00:12 650 MG Morphine Sulfate 2 mg Q6HPRN PRN IV 09/19/24 19:15 Nitroglycerin 0.4 mg Q5MINP PRN SL 09/19/24 19:15 Morphine Sulfate 2 mg Q30M PRN IV 09/19/24 19:15 Docusate Sodium 100 mg BID PO 09/20/24 22:00 09/21/24 10:22 100 MG Pantoprazole Sodium 40 mg BID IV 09/20/24 22:00 09/20/24 21:29 40 MG Sucralfate 1 gm BID@0600,2200 PO 09/20/24 22:00 09/21/24 06:51 1 GM Laboratory Results Laboratory Tests 09/20/24 04:34 Urinalysis Test 09/19/24 10:57 Urine Color Yellow (Yellow) Urine Clarity Clear (Clear) Urine pH 6.5 (5.0-9.0) Urine Specific [place] 1.021 (1.001-1.035) Urine Protein Trace (Negative) H Urine Ketones 1+ (Negative) H Urine Blood Negative /uL (Negative) Urine Nitrite Negative (Negative) Urine Bilirubin Negative (Negative) Urine Urobilinogen Normal mg/dL (Negative) Urine Leukocyte Esterase 1+ /uL (Negative) Urine RBC 1 /hpf (0 - 4) Urine Microscopic WBC 4 /HPF (0-5) Urine Squamous Epithelial Cells Few /hpf (<5) Urine Bacteria Few /hpf (None Seen) H Urine Mucus Few (None Seen) Urine Glucose Normal mg/dL (Normal) Assessment/Plan Assessment/Plan Acute abdominal pain due to Acute diverticulitis - Cont Abx Plan discussed with: Patient My Orders Orders - FREDIS OCHOA MD Procedure Category Date Status Time Full Liq Diet DIET 09/21/24 Transmitted Lunch Sodium Chloride 0.9% PHA 09/21/24 In Process 17:30 Complete Blood Count LAB 09/22/24 Verified 04:00 Comprehensive LAB 09/22/24 Verified Metabolic Panel 04:00 Date of Service: September 21, 2024 Billing Provider: FREDIS OCHOA MD Common Visit Codes: [id number] INP/OBS CARE(HIGH) FREDIS OCHOA MD September 21, 2024 17:59
[2024-09-22] VITALS (8 sets, daily range): BP systolic 84–115; BP diastolic 42–59; PULSE 71–94; RESP 16–21; TEMP 97.6–99; O2SAT 95–100
[2024-09-22] MEDS: ALBUMIN 5% 250 ML IV ONE (04:29)
[2024-09-22 06:18] LABS: Basophils # (auto) 0 10 ^3/uL (0-0.2); Basophils % (auto) 0.6 % (0.0-2.0); Eosinophils # (auto) 0.1 10 ^3/uL (0-0.8); Hematocrit 34.7 % (36.0-46.0); Hemoglobin 11.9 g/dL (12.2-16.2); Lymphocytes # (auto) 1.1 10 ^3/uL (0.4-5.4); Lymphocytes % (auto) 15.8 % (10.0-50.0); Mean Corpuscular Hemoglobin 30.1 pg (28.0-32.0); Mean Corpuscular Hgb Conc. 34.3 g/dL (32.0-36.0); Mean Corpuscular Volume 87.9 fL (80.0-100.0); Monocytes # (auto) 0.5 10 ^3/uL (0-1.3); Monocytes % (auto) 7.1 % (0.0-12.0); Neutrophils # (auto) 5.4 10 ^3/uL (1.6-8.6); Neutrophils % (auto) 75.5 % (37.0-80.0); Platelet Count (auto) 328 10^3/uL (140-450); Red Blood Cells 3.95 10^6/uL (4.0-5.20); Red Cell Distribution Width 12.2 % (11.8-14.3); White Blood Cell 7.2 10^3/uL (4.4-10.8)
[2024-09-22 06:43] LABS: Alanine Aminotransferase 10 U/L (7-40); Albumin 3.7 g/dL (3.2-4.8); Alkaline Phosphatase 77 U/L (46-116); Anion Gap 10 (5-15); BUN/Creatinine Ratio 8.3 (10.0-20.0); Blood Urea Nitrogen < 5 mg/dL (9-23); Calcium 8.8 mg/dL (8.7-10.4); Carbon Dioxide 24 mmol/L (20-31); Chloride 107 mmol/L (98-107); Glucose 103 mg/dL (74-106); Sodium 141 mmol/L (136-145); Total Protein 5.8 g/dL (5.7-8.2)
[2024-09-22 06:44] LABS: Aspartate Aminotransferase 8 U/L (13-40); Bilirubin, Total 0.4 mg/dL (0.2-1.0)
[2024-09-22] MEDS: SODIUM CHLORIDE 0.9% 2,000 ML IV ONE (10:45)
--- NOTE | 2024-09-22 13:55 | DVHPN2 ---
Progress Note - Dictate Date Seen: September 22, 2024 Medical Necessity Reason Pt with a Central, PICC or Fol: No Subjective No new complaints Patient is tolerating full liquid diet She had a bowel movement today Abdominal pain is improving vital signs Vital Sign Date Time Temp Pulse Resp B/P (MAP) Pulse Ox O2 Delivery O2 Flow Rate FiO2 09/22/24 08:51 97.6 71 21 90/44 (59) 95 97.6 09/22/24 08:00 Room Air* 0 21 Total Intake and Output 09/21/24 09/21/24 09/22/24 15:00 23:00 07:00 Intake Total 150 ml 400 ml 300 ml Balance 150 ml 400 ml 300 ml medications Current Medications Medications Dose Ordered Sig/Nico Route Start Time Stop Time Status Last Admin Dose Admin Ceftriaxone Sodium 50 ml @ 100 mls/hr DAILY@09 IV 09/20/24 09:00 09/22/24 09:21 100 MLS/HR Metronidazole 100 ml @ 100 mls/hr Q8HR IV 09/19/24 22:00 09/22/24 06:08 100 MLS/HR Acetaminophen/ Hydrocodone Bitart 1 tab Q4HP PRN PO 09/19/24 19:15 09/20/24 00:26 1 TAB Ondansetron HCl 4 mg Q4HP PRN IV 09/19/24 19:15 Acetaminophen 650 mg Q6HP PRN PO 09/19/24 19:15 09/22/24 04:27 650 MG Docusate Sodium 100 mg BID PO 09/20/24 22:00 09/21/24 21:15 100 MG Pantoprazole Sodium 40 mg BID IV 09/20/24 22:00 09/22/24 09:21 40 MG Sucralfate 1 gm BID@0600,2200 PO 09/20/24 22:00 09/22/24 06:08 1 GM objective General Appearance: Alert, Oriented X3, Cooperative, No acute distress Lungs: Clear to auscultation Cardiovascular: Regular rate, Normal S1, Normal S2 Abdomen: Soft, Other (Tenderness) Psych/Mental Status: Mental status NL laboratory and microbiology Laboratory Tests 09/22/24 05:24 Test 09/22/24 05:24 Range/Units Serum Glucose 103 74-106 mg/dL Problems(with codes): (1) Acute diverticulitis (2) Intractable abdominal pain Prognosis Plan Stool softeners IV antibiotics; switch to oral upon discharge Advance to soft mechanical diet Discharge planning as per hospitalist Outpatient follow up with me in 6-8 weeks to discuss elective screening colonoscopy Plan discussed with: Other (Nurse) YRN RUIZ MD September 22, 2024 13:55
--- NOTE | 2024-09-22 17:56 | DVHPN2 ---
Subjective Seen and examined at bedside, BP on lower side. Changes from previous H/P or p: No Changes Objective Vitals Vital Signs Date Time Temp Pulse Resp B/P (MAP) Pulse Ox O2 Delivery O2 Flow Rate FiO2 09/22/24 17:30 99.0 84 18 115/59 (77) 98 99.0 09/22/24 08:00 Room Air* 0 21 Intake/Output Intake and Output 09/22/24 07:00 Intake Total 850 ml Balance 850 ml Intake Oral 600 ml IV Total 250 ml # Voids 6 # Bowel Movements 1 General Appearance: Alert, Oriented X3, Cooperative, No acute distress Lungs: Clear to auscultation Cardiovascular: Regular rate, Normal S1, Normal S2 Abdomen: Soft, Other (Tenderness) Psych/Mental Status: Mental status NL Medications Current Medications Medications Dose Ordered Sig/Nico Route Start Time Stop Time Status Last Admin Dose Admin Ceftriaxone Sodium 50 ml @ 100 mls/hr DAILY@09 IV 09/20/24 09:00 09/22/24 09:21 100 MLS/HR Metronidazole 100 ml @ 100 mls/hr Q8HR IV 09/19/24 22:00 09/22/24 14:31 100 MLS/HR Acetaminophen/ Hydrocodone Bitart 1 tab Q4HP PRN PO 09/19/24 19:15 09/20/24 00:26 1 TAB Ondansetron HCl 4 mg Q4HP PRN IV 09/19/24 19:15 Acetaminophen 650 mg Q6HP PRN PO 09/19/24 19:15 09/22/24 04:27 650 MG Docusate Sodium 100 mg BID PO 09/20/24 22:00 09/21/24 21:15 100 MG Pantoprazole Sodium 40 mg BID IV 09/20/24 22:00 09/22/24 09:21 40 MG Sucralfate 1 gm BID@0600,2200 PO 09/20/24 22:00 09/22/24 06:08 1 GM Laboratory Results Laboratory Tests 09/22/24 05:24 Chemistry Test 09/22/24 05:24 Albumin 3.7 g/dL (3.2-4.8) Calcium Level 8.8 mg/dL (8.7-10.4) Total Protein 5.8 g/dL (5.7-8.2) LFT Test 09/22/24 05:24 Alanine Aminotransferase (ALT) 10 U/L (7-40) Alkaline Phosphatase 77 U/L (46-116) Aspartate Amino Transferase (AST) 8 U/L (13-40) L Total Bilirubin 0.4 mg/dL (0.2-1.0) HgA1c, TSH Test 09/22/24 05:24 Thyroid Stimulating Hormone (TSH) 0.57 uIU/mL (0.55-4.78) Urinalysis Test 09/19/24 10:57 Urine Color Yellow (Yellow) Urine Clarity Clear (Clear) Urine pH 6.5 (5.0-9.0) Urine Specific [place] 1.021 (1.001-1.035) Urine Protein Trace (Negative) H Urine Ketones 1+ (Negative) H Urine Blood Negative /uL (Negative) Urine Nitrite Negative (Negative) Urine Bilirubin Negative (Negative) Urine Urobilinogen Normal mg/dL (Negative) Urine Leukocyte Esterase 1+ /uL (Negative) Urine RBC 1 /hpf (0 - 4) Urine Microscopic WBC 4 /HPF (0-5) Urine Squamous Epithelial Cells Few /hpf (<5) Urine Bacteria Few /hpf (None Seen) H Urine Mucus Few (None Seen) Urine Glucose Normal mg/dL (Normal) Assessment/Plan Assessment/Plan Acute abdominal pain due to Acute diverticulitis - Cont Abx Plan discussed with: Patient My Orders Orders - FREDIS OCHOA MD Procedure Category Date Status Time Cortisol Am LAB 09/22/24 Logged 10:33 Date of Service: September 22, 2024 Billing Provider: FREDIS OCHOA MD Common Visit Codes: [id number] INP/OBS CARE(MOD) FREDIS OCHOA MD September 22, 2024 17:56
--- NOTE | 2024-09-22 23:42 | DVHSR ---
APPROVED REPORT EXAM: Two-dimensional and M-mode echocardiogram with Doppler and color Doppler. Mitral Valve MitralMitral Stenosis E/A ratio0.02D MVAcm2 LEFT VENTRICLE The left ventricle is normal size. There is normal left ventricular wall thickness. The left ventricle is normal in structure and function. Left ventricle systolic function is normal. The Ejection Fraction is 55-60%. No regional wall motion abnormalities noted. RIGHT VENTRICLE The right ventricle is normal size. There is normal right ventricular wall thickness. The right ventricular systolic function is normal. ATRIA The left atrium size is normal. The right atrium size is normal. The interatrial septum is intact with no evidence for an atrial septal defect. MITRAL VALVE The mitral valve is normal in structure and function. There is no evidence of mitral valve prolapse. There is no mitral valve stenosis. There is no mitral valve regurgitation noted. PULMONIC VALVE The pulmonary valve is normal in structure and function. There is no pulmonic valvular regurgitation. There is no pulmonic valvular stenosis. TRICUSPID VALVE The tricuspid valve is normal in structure and function. There is no tricuspid valve regurgitation noted. There is no tricuspid valve prolapse or vegetation. There is no tricuspid valve stenosis. AORTIC VALVE The aortic valve is normal in structure and function. No aortic regurgitation is present. There is no aortic valvular stenosis. There is no aortic valvular vegetation. GREAT VESSELS The aortic root is normal in size. PERICARDIAL EFFUSION There is a no pericardial effusion. Conclusion There is normal left ventricular wall thickness. The left ventricle is normal in structure and function. Left ventricle systolic function is normal. The Ejection Fraction is 55-60%. There is no gross valvular pathology There is no pericardial effusion.
[2024-09-23] VITALS (7 sets, daily range): BP systolic 96–111; BP diastolic 41–62; PULSE 56–83; RESP 15–20; TEMP 97.8–98.7; O2SAT 93–100
--- NOTE | 2024-09-23 10:33 | DVHPN2 ---
Progress Note - Dictate Date Seen: September 23, 2024 Medical Necessity Reason Pt with a Central, PICC or Fol: No Subjective No new complaints Patient is tolerating soft mechanical diet She had a bowel movement today ; no bleeding Abdominal pain is improving, small focal area of tenderness vital signs Vital Sign Date Time Temp Pulse Resp B/P (MAP) Pulse Ox O2 Delivery O2 Flow Rate FiO2 09/23/24 08:39 98.7 56 16 103/62 (76) 97 98.7 09/23/24 08:00 Room Air* 0 21 Total Intake and Output 09/22/24 09/22/24 09/23/24 14:59 22:59 06:59 Intake Total 2340 ml 600 ml Output Total 240 ml Balance 2100 ml 600 ml medications Current Medications Medications Dose Ordered Sig/Nico Route Start Time Stop Time Status Last Admin Dose Admin Ceftriaxone Sodium 50 ml @ 100 mls/hr DAILY@09 IV 09/20/24 09:00 09/23/24 08:58 100 MLS/HR Metronidazole 100 ml @ 100 mls/hr Q8HR IV 09/19/24 22:00 09/23/24 05:31 100 MLS/HR Acetaminophen/ Hydrocodone Bitart 1 tab Q4HP PRN PO 09/19/24 19:15 09/20/24 00:26 1 TAB Ondansetron HCl 4 mg Q4HP PRN IV 09/19/24 19:15 Acetaminophen 650 mg Q6HP PRN PO 09/19/24 19:15 09/22/24 04:27 650 MG Docusate Sodium 100 mg BID PO 09/20/24 22:00 09/23/24 10:20 100 MG Pantoprazole Sodium 40 mg BID IV 09/20/24 22:00 09/23/24 10:20 40 MG Sucralfate 1 gm BID@0600,2200 PO 09/20/24 22:00 09/23/24 05:31 1 GM objective General Appearance: Alert, Oriented X3, Cooperative, No acute distress Lungs: Clear to auscultation Cardiovascular: Regular rate, Normal S1, Normal S2 Abdomen: Soft, Other (Tenderness) Psych/Mental Status: Mental status NL laboratory and microbiology Laboratory Tests 09/22/24 05:24 Test 09/22/24 05:24 Range/Units Serum Glucose 103 74-106 mg/dL Problems(with codes): (1) Acute diverticulitis (2) Intractable abdominal pain Prognosis Plan Continue soft mechanical diet Continue stool softeners Pain control IV antibiotics for now and oral antibiotics on discharge Patient was advised to follow up in my office in 4-6 weeks to review results and discuss further management Check 2D echo results Plan discussed with: Patient YRN RUIZ MD September 23, 2024 10:33
[2024-09-23] MEDS ORDERED: METR-344 PO (15:25)
[2024-09-23] MEDS ORDERED: LEVO500T91 PO (15:25)
--- NOTE | 2024-09-23 15:48 | DVHDS2 ---
Discharge Summary Date of Admission September 19, 2024 at 19:06 Date of Discharge: September 23, 2024 Labs/Diagnostic Data: Laboratory Results Test 09/23/24 07:45 09/22/24 05:24 09/19/24 10:57 Cortisol AM Sample 17.68 ug/dL (5.27-22.45) White Blood Count 7.2 10^3/uL (4.4-10.8) Red Blood Count 3.95 10^6/uL (4.0-5.20) Hemoglobin 11.9 g/dL (12.2-16.2) Hematocrit 34.7 % (36.0-46.0) Mean Corpuscular Volume 87.9 fL (80.0-100.0) Mean Corpuscular Hemoglobin 30.1 pg (28.0-32.0) Mean Corpuscular Hemoglobin Concent 34.3 g/dL (32.0-36.0) Red Cell Distribution Width 12.2 % (11.8-14.3) Platelet Count 328 10^3/uL (140-450) Mean Platelet Volume 8.2 fL (6.9-10.8) Neutrophils (%) (Auto) 75.5 % (37.0-80.0) Lymphocytes (%) (Auto) 15.8 % (10.0-50.0) Monocytes (%) (Auto) 7.1 % (0.0-12.0) Eosinophils (%) (Auto) 1.0 % (0.0-7.0) Basophils (%) (Auto) 0.6 % (0.0-2.0) Neutrophils # (Auto) 5.4 10 ^3/uL (1.6-8.6) Lymphocytes # (Auto) 1.1 10 ^3/uL (0.4-5.4) Monocytes # (Auto) 0.5 10 ^3/uL (0-1.3) Eosinophils # (Auto) 0.1 10 ^3/uL (0-0.8) Basophils # (Auto) 0 10 ^3/uL (0-0.2) Nucleated Red Blood Cells 0.0 % Sodium Level 141 mmol/L (136-145) Potassium Level 4.0 mmol/L (3.5-5.1) Chloride Level 107 mmol/L (98-107) Carbon Dioxide Level 24 mmol/L (20-31) Anion Gap 10 (5-15) Blood Urea Nitrogen < 5 mg/dL (9-23) Creatinine 0.60 mg/dL (0.550-1.02) Glomerular Filtration Rate Calc 105 mL/min (>90) BUN/Creatinine Ratio 8.3 (10.0-20.0) Serum Glucose 103 mg/dL (74-106) Calcium Level 8.8 mg/dL (8.7-10.4) Total Bilirubin 0.4 mg/dL (0.2-1.0) Aspartate Amino Transferase (AST) 8 U/L (13-40) Alanine Aminotransferase (ALT) 10 U/L (7-40) Alkaline Phosphatase 77 U/L (46-116) Total Protein 5.8 g/dL (5.7-8.2) Albumin 3.7 g/dL (3.2-4.8) Thyroid Stimulating Hormone (TSH) 0.57 uIU/mL (0.55-4.78) Free Thyroxine (T4) Calculated 1.11 ng/dL (0.89-1.76) Urine Color Yellow (Yellow) Urine Clarity Clear (Clear) Urine pH 6.5 (5.0-9.0) Urine Specific [place] 1.021 (1.001-1.035) Urine Protein Trace (Negative) Urine Ketones 1+ (Negative) Urine Blood Negative /uL (Negative) Urine Nitrite Negative (Negative) Urine Bilirubin Negative (Negative) Urine Urobilinogen Normal mg/dL (Negative) Urine Leukocyte Esterase 1+ /uL (Negative) Urine RBC 1 /hpf (0 - 4) Urine Microscopic WBC 4 /HPF (0-5) Urine Squamous Epithelial Cells Few /hpf (<5) Urine Bacteria Few /hpf (None Seen) Urine Mucus Few (None Seen) Urine Glucose Normal mg/dL (Normal) Other Laboratory Tests 09/22/24 05:24 Brief Hx & Hospital Course: Patient was admitted for Acute Diverticulitis, feeling better. Will be discharged home with a FULL LIQUID diet for 2 weeks. Will need to [facility]up with [facility]. I spoke with the patients spouse on the phone, advised patient also needs a Colonoscopy in 6-8 weeks. Condition at Discharge: Stable Final Diagnosis/Problems List Acute diverticulitis Discharge Disposition: Home Discharge Instruct/Medications Diet: See Comment Diet comment: Full liquid x 2 weeks Activity: No Restrictions, As Tolerated Follow Up/Referral: [facility] Medications: see [facility] Discharge Statement: "Patient was advised to return to the ER or call 911 if any headaches, dizziness, shortness of breath, chest pain, abdominal pain, bleeding, fevers, or worsening of medical condition. Patient was counseled about treatment plan, medications, possible side effects, patientverbalized understanding. All questions were answered to the best of my ability. This discharge took greater then 30 minutes in planning, reviewing documentation, counseling the patient, and discussing with other team members." ASSESSMENT ASSESSMENT Assessment Acute diverticulitis Date of Service: September 23, 2024 Billing Provider: FREDIS OCHOA MD Common Visit Codes: 65775-JEP/OBS DISCH DAY >30min FREDIS OCHOA MD September 23, 2024 15:48
== END 2024-09-23 17:00 | disposition home or self-care (01) | DRG 244 ==
LOC: ER 10:40 → OVERFLOW 19:06 → EAST 09-20 13:27
PROVIDERS: ADMIT Internal Medicine; ATTEND Internal Medicine
DX: K57.32 Diverticulitis of large intestine without perforation or abscess without bleeding (principal); D25.9 Leiomyoma of uterus, unspecified; E78.00 Pure hypercholesterolemia, unspecified; F41.9 Anxiety disorder, unspecified; G51.0 Bell's palsy; K59.00 Constipation, unspecified; Z90.49 Acquired absence of other specified parts of digestive tract; Z90.710 Acquired absence of both cervix and uterus; Z83.3 Family history of diabetes mellitus; Z82.5 Family history of asthma and other chronic lower respiratory diseases; Z82.49 Family history of ischemic heart disease and other diseases of the circulatory system; Z81.8 Family history of other mental and behavioral disorders; Z83.79 Family history of other diseases of the digestive system
CPT/HCPCS: 36415; 74176; 80048; 80053; 81001; 82533; 84439; 84443; 85025; 93306; 96365; 96368; G0378; J2405; J2470; J3490